=== PATIENT | female | born 1975 | race African-American/Black ===

== ENCOUNTER 2016-12-12 10:23 | Emergency (ER) | payer MEDICARE ==
[2016-12-12 12:29] LABS: BASOPHILS 0.4 % (0.0-2.0); EOSINOPHILS 1.4 % (0-7); HEMATOCRIT 37.2 % (36.0-48.0); HEMOGLOBIN 12.2 g/dL (12-16); IMMATURE GRANULOCYTES 0.2 % (0-5); LYMPHOCYTES 26.6 % (15-50); MCH 29.5 pg (26.0-34.0); MCHC 32.8 g/dL (31.0-37.0); MCV 89.9 fL (80.0-100.0); MEAN PLATELET VOLUME 9.5 fL (7.4-10.4); MONOCYTES 4.9 % (2-11); NEUTROPHILS 66.5 % (40-80); PLATELET COUNT 338 10x3/uL (130-400); RBC 4.14 10x6/uL (4.00-5.40); RDW 12.9 % (11.5-14.5)
[2016-12-12 12:39] LABS: HCG SERUM NEGATIVE (NEGATIVE)
[2016-12-12 12:43] LABS: ALBUMIN 3.7 g/dL (3.4-5.0); ALKALINE PHOSPHATASE 36 U/L (46-116); ALT (SGPT) 16 U/L (10-68); AMYLASE - SERUM 75 U/L (25-115); BILIRUBIN - TOTAL 0.14 mg/dL (0.2-1.3); CALC OSMOLALITY 276 mosm/kg (275-300); CALCIUM 9.3 mg/dL (8.5-10.1); CHLORIDE - SERUM 104 mmol/L (98-107); CREATININE - SERUM 0.8 mg/dL (0.6-1.3); GLUCOSE 79 mg/dL (74-106); LIPASE 161 U/L (73-393); POTASSIUM - SERUM 3.9 mmol/L (3.5-5.1); PROTEIN - SERUM 7.4 g/dL (6.4-8.2); SODIUM 140 mmol/L (136-145); UREA NITROGEN 11 mg/dL (7-18); eGFR NON AFRICAN AMERICAN 85 mL/min (90-120)
[2016-12-12 13:02] LABS: APPEARANCE HAZY (CLEAR); COLOR STRAW (YELLOW)
[2016-12-12 13:03] LABS: BILIRUBIN NEGATIVE (NEGATIVE); GLUCOSE NEGATIVE (NEGATIVE); KETONE NEGATIVE (NEGATIVE); LEUKOCYTE ESTERASE TRACE (NEGATIVE); NITRITE NEGATIVE (NEGATIVE); PROTEIN NEGATIVE (NEGATIVE); UROBILINOGEN NORMAL (NORMAL)
[2016-12-12 13:07] LABS: BACTERIA FEW /hpf (NONE SEEN); EPITHELIAL CELLS 0-5 /hpf (0-5); WHITE CELLS - URINE RARE /hpf (0-5)
== END 2016-12-12 13:45 | disposition home or self-care (01) ==
LOC: D.ER 10:23
PROVIDERS: Physician Assistant
DX: J06.9 Acute upper respiratory infection, unspecified (principal); J20.9 Acute bronchitis, unspecified; K52.9 Noninfective gastroenteritis and colitis, unspecified; F17.200 Nicotine dependence, unspecified, uncomplicated

== ENCOUNTER 2019-02-14 07:49 | Emergency (ER) | payer MEDICARE ==
[~2019-02-14] VITALS: Ht 149.9 cm; Wt 88.6 kg
[2019-02-14 07:57] VITALS: Ht 149.9 cm; Wt 88.6 kg
[2019-02-14] MEDS ORDERED: [UNRECOGNIZED DRUG - OTHER] (08:01)
[2019-02-14 08:33] LABS: BASOPHILS 0.4 % (0-2); EOSINOPHILS 2.1 % (0-7); HEMATOCRIT 38.6 % (36.0-48.0); HEMOGLOBIN 13.2 g/dL (12-16); IMMATURE GRANULOCYTES 0.1 % (0-5); LYMPHOCYTES 27.7 % (15-50); MCH 29.8 pg (26.0-34.0); MCHC 34.2 g/dL (31.0-37.0); MCV 87.1 fL (80.0-100.0); MEAN PLATELET VOLUME 9.8 fL (7.4-10.4); MONOCYTES 11.5 % (2-11); NEUTROPHILS 58.2 % (40-80); PLATELET COUNT 338 10x3/uL (130-400); RBC 4.43 10x6/uL (4.00-5.40); RDW 13.4 % (11.5-14.5); WBC 6.8 10x3/uL (4.8-10.8)
[2019-02-14 08:56] LABS: HCG URINE NEGATIVE (NEGATIVE)
[2019-02-14 09:00] LABS: APPEARANCE HAZY (CLEAR); BILIRUBIN NEGATIVE (NEGATIVE); COLOR YELLOW (YELLOW); GLUCOSE NEGATIVE (NEGATIVE); KETONE NEGATIVE (NEGATIVE); NITRITE NEGATIVE (NEGATIVE); PROTEIN NEGATIVE (NEGATIVE); SPECIFIC GRAVITY 1.025 (1.005-1.020); UROBILINOGEN NORMAL (NORMAL); WHITE CELLS - URINE OCC /hpf (0-5)
[2019-02-14 09:01] LABS: BACTERIA MODERATE /hpf (NONE SEEN); CALCIUM OXALATE CRYSTALS 0-5 /hpf (NONE SEEN); EPITHELIAL CELLS 0-5 /hpf (0-5); MUCUS <1+ /lpf (NONE SEEN); RED CELLS - URINE 0-5 /hpf (0-5)
[2019-02-14] MEDS ORDERED: MACROBID100 MG PO (09:24)
[2019-02-14 09:48] LABS: ALBUMIN 3.2 g/dL (3.4-5.0); ALKALINE PHOSPHATASE 37 U/L (46-116); ALT (SGPT) 18 U/L (10-68); AMYLASE - SERUM 101 U/L (25-115); BILIRUBIN - TOTAL 0.25 mg/dL (0.2-1.3); CALC OSMOLALITY 275 mosm/kg (275-300); CALCIUM 8.5 mg/dL (8.5-10.1); CARBON DIOXIDE 27.1 mmol/L (21.0-32.0); CHLORIDE - SERUM 105 mmol/L (98-107); CREATININE - SERUM 0.8 mg/dL (0.6-1.3); GLUCOSE 87 mg/dL (74-106); LIPASE 468 U/L (73-393); POTASSIUM - SERUM 4.3 mmol/L (3.5-5.1); PROTEIN - SERUM 6.6 g/dL (6.4-8.2); SODIUM 139 mmol/L (136-145); UREA NITROGEN 9 mg/dL (7-18); eGFR NON AFRICAN AMERICAN 84 mL/min (90-120)
[2019-02-14] MEDS ORDERED: HYDROCODON-ACE1 EAC2 PO (10:31)
[2019-02-14 11:30] VITALS: BP 140/86
== END 2019-02-14 12:09 | disposition home or self-care (01) ==
LOC: D.ER 07:49
PROVIDERS: Emergency Medicine
DX: R10.9 Unspecified abdominal pain (principal); R82.71 Bacteriuria; K44.9 Diaphragmatic hernia without obstruction or gangrene

== ENCOUNTER 2019-03-07 07:35 | Outpatient (CLI) | payer MEDICARE ==
[~2019-03-07] VITALS: Ht 149.9 cm; Wt 87.3 kg
[~2019-03-07 07:35] MED LIST: HYDROCODON-ACE1 EAC2 PO; MACROBID100 MG PO; [UNRECOGNIZED DRUG - OTHER] PO
[2019-03-07 08:24] LABS: HEMATOCRIT 38.1 % (36.0-48.0); HEMOGLOBIN 12.7 g/dL (12-16); MCH 29.5 pg (26.0-34.0); MCHC 33.3 g/dL (31.0-37.0); MCV 88.6 fL (80.0-100.0); MEAN PLATELET VOLUME 9.5 fL (7.4-10.4); RBC 4.3 10x6/uL (4.00-5.40); RDW 13.7 % (11.5-14.5); WBC 8.3 10x3/uL (4.8-10.8)
[2019-03-07] MEDS ORDERED: ALBUTEROL SULF8.5 GM INH (08:24)
[2019-03-07 08:43] VITALS: BP 140/94; Ht 149.9 cm; Wt 87.3 kg
--- NOTE | 2019-03-07 10:48 | NUR ---
ESOPHAGEAL MANOMETRY FROM [id number].
--- NOTE | 2019-03-07 11:17 | NUR ---
1114 IV DC'D. CATHETER INTACT. NO BLEEDING AT SITE. BANDAID APPLIED.
--- NOTE | 2019-03-08 09:41 | OP ---
PATIENT NAME: JEANETTE EDWARDS MEDICAL RECORD: [id number] :77 LOCATION:D.OPS ADMISSION DATE: SURGEON: ANTHONY MINOR MD DATE OF OPERATION: 03/07/2019 PREOPERATIVE DIAGNOSES: 1. Paraesophageal hernia. 2. Tobacco dependence syndrome. 3. Asthma. 4. Morbid obesity with a BMI of 40. POSTOPERATIVE DIAGNOSES: 1. Paraesophageal hernia. 2. Tobacco dependence syndrome. 3. Asthma. 4. Morbid obesity with a BMI of 40. PROCEDURE: 1. EGD with biopsy. 2. Endoscopic placement of manometry catheter. SURGEON: Anthony Minor MD REPORT OF PROCEDURE: The Olympus endoscope was advanced through the mouth and esophagus. The patient had a very tortuous course through the stomach. I was eventually able to pass through the GE junction and stomach and get through the antrum until I was in the third portion of the duodenum. The duodenum itself appeared to be normal with no signs of any inflammatory changes. No masses, lesions or ulcerations were noted. As we pulled back a biopsy was taken of the antrum of the stomach. Retroflexed views of the stomach showed no evidence of any masses, lesions or ulcerations, but there was distortion of the tissues consistent with the known large paraesophageal hernia. The GE junction appeared to be normal in size without much dilatation of the tissues around the scope. As we pulled back, we could see that the GE junction was at approximately 28 cm from the teeth. There was some patchy irritation and ulceration to the tissues at the GE junction, so a biopsy was taken at the lower third of the esophagus. As we pulled the scope back, we were able to inspect the esophagus and can see no masses, lesions or ulcerations. We then advanced a manometry tube down the right naris. Endoscopically, we made sure that the catheter was in good position. We could see that the catheter was passing through the GE junction into the fundus of the stomach. At this point, we removed the insufflation and the scope was removed. COMPLICATIONS: None. CONDITION: Stable. ANESTHESIA: TIVA. BLOOD LOSS: Minimal. TRANSINT:[id number] Voice Confirmation ID: [id number] DOCUMENT ID: [id number] OPERATIVE REPORT [id number] JERRYANTHONY MACKENZIE MD at 0941 CC: ROBIN PADGETT [id number] DICTATION DATE: 03/07/19 1011 TANK PUMPER PANELBOARD: 03/07/19 1308 DEP CLI 03/07/19 [facility] [address] [place] [address]
== END 2019-03-07 11:27 | disposition home or self-care (01) ==
LOC: D.OPS 07:35
PROVIDERS: Anesthesiology; ATTEND Surgery
DX: K44.9 Diaphragmatic hernia without obstruction or gangrene (principal)

== ENCOUNTER 2019-03-25 14:30 | Outpatient (CLI) | payer MEDICARE ==
[2019-03-07 08:43] VITALS: BMI 38.8
[~2019-03-25 14:30] MED LIST changes: +ALBUTEROL SULF8.5 GM INH
== END 2019-03-25 15:00 | disposition home or self-care (01) ==
LOC: D.MAMMO 14:30
PROVIDERS: ATTEND Emergency Medicine
DX: Z12.31 Encounter for screening mammogram for malignant neoplasm of breast (principal)

== ENCOUNTER 2019-04-22 08:00 | Outpatient (CLI) | payer MEDICARE ==
[2019-04-23 08:03] VITALS: BMI 39.2
== END 2019-04-22 23:59 | disposition home or self-care (01) ==
LOC: D.MAMMO 08:00
PROVIDERS: ATTEND Emergency Medicine
DX: R92.8 Other abnormal and inconclusive findings on diagnostic imaging of breast (principal)

== ENCOUNTER 2019-04-23 07:15 | Day surgery (SDC) | payer MEDICAID ==
[2019-04-22 12:29] LABS: BASOPHILS 0.2 % (0-2); HEMATOCRIT 36.6 % (36.0-48.0); HEMOGLOBIN 12.1 g/dL (12-16); LYMPHOCYTES 32.7 % (15-50); MCH 29.2 pg (26.0-34.0); MCHC 33.1 g/dL (31.0-37.0); MCV 88.4 fL (80.0-100.0); MEAN PLATELET VOLUME 9.3 fL (7.4-10.4); MONOCYTES 5.3 % (2-11); NEUTROPHILS 58.8 % (40-80); PLATELET COUNT 309 10x3/uL (130-400); RBC 4.14 10x6/uL (4.00-5.40); RDW 13.4 % (11.5-14.5); WBC 6.1 10x3/uL (4.8-10.8)
[2019-04-22 12:38] LABS: ANION GAP 9.8 mmol/L (8-16); CALCIUM 8.8 mg/dL (8.5-10.1); CARBON DIOXIDE 27.1 mmol/L (21.0-32.0); CREATININE - SERUM 0.9 mg/dL (0.6-1.3); POTASSIUM - SERUM 3.9 mmol/L (3.5-5.1)
[~2019-04-23] VITALS: Ht 149.9 cm; Wt 88.2 kg
--- NOTE | ~2019-04-23 | OP ---
PATIENT NAME: JEANETTE EDWARDS MEDICAL RECORD: [id number] :77 LOCATION:D.OPS ADMISSION DATE: SURGEON: ANTHONY MINOR MD DATE OF OPERATION: 04/23/2019 PREOPERATIVE DIAGNOSES: 1. Paraesophageal hernia. 2. Asthma. 3. Tobacco dependence syndrome. POSTOPERATIVE DIAGNOSES: 1. Paraesophageal hernia. 2. Asthma. 3. Tobacco dependence syndrome. PROCEDURE: Laparoscopic paraesophageal hernia repair. SURGEON: Anthony Minor MD REPORT OF PROCEDURE: The patient's abdomen was prepped and draped in sterile fashion. A Veress needle was inserted in the left upper quadrant and the abdomen was insufflated. An 11-mm Visiport trocar was inserted in the midline just above the umbilicus. We could see the Veress needle and there was no sign of any injury to the bowel or surrounding structures. At this point, the 11-mm trocar was placed in the left subcostal region, a 5-mm trocar was placed in the epigastrium, a 5-mm trocar was placed in the left lateral abdomen and a final 5-mm trocar was placed in the right lateral subcostal region. A liver retractor was inserted and the left lobe of the liver was elevated. At this point, we could see a large hiatal hernia present with the mid portion of the transverse colon extending up into the chest along the omentum with gentle traction. I was eventually able to eviscerate the colon and the omentum out and at this point these would lay easily into the abdominal cavity. The stomach was retracted up into the chest and with gentle manipulation we could pull it down partially, but immediately would fall back into the chest when released, probably 3/4 or more of the stomach was resting in the chest cavity. We began our dissection on the lesser omentum and took these down using Harmonic scalpel. The lesser omentum was taken down to the right side of the right kenji and we scored the peritoneum and then began transitioning to taking down the peritoneal attachments of the hernia sac. This was done as deep in the chest and as far anteriorly and posteriorly as possible. Once we had done this, then we came around to the greater curvature of the stomach. We took down the short gastrics from the upper half of the stomach using Harmonic scalpel all the way to the left side of the right kenji. Again, we scored the peritoneum and began taking down the hernia sac as far into the chest as possible. At this point, we had complete release of the hernia sac from its surrounding attachments. The hernia sac was then dissected off of the GE junction and esophagus. At this point, we had a 360-degree inspection of the esophagus. We released some more attachments into the thoracic cavity. At this point, we could pull the stomach down out of the chest easily and in general it rested in the abdominal cavity with the GE junction being right at the diaphragmatic hiatus. We eventually closed up the diaphragmatic hiatus using interrupted 0 Polydeks times 6. We had good approximation of the tissue and it did not appear to be under much tension. We then performed a 270-degree posterior Toupet wrap with interrupted 0 Polydeks times 6. The wrap appeared to be in good position. The tissues did not have any evidence of any bleeding. Everything appeared to rest comfortably in the OPERATIVE REPORT [id number] JEANETTE EDWARDS abdominal cavity and the wrap was noted to be on the distal portion of the patient's esophagus on its most proximal aspect. The wound was then irrigated out thoroughly with normal saline and the liver retractor was removed. At this point, the 11-mm trocar site fascias were closed with 0 Vicryl using a Petr-Ganga suture passer device. The ports and insufflation were then removed. A total of 10 mL of 0.25% Marcaine with epinephrine was infused into the surrounding tissues and the wounds were then closed with subcutaneous 5-0 Monocryl. COMPLICATIONS: None. CONDITION: Stable. ANESTHESIA: General endotracheal and local. BLOOD LOSS: Minimal. TRANSINT:[id number] Voice Confirmation ID: [id number] DOCUMENT ID: [id number] ANTHONY MINOR MD CC: ROBIN PADGETT [id number] DICTATION DATE: 04/23/19 1240 BUILDING MAINTENANCE TECHNICIAN: 04/23/19 1321 [address] [facility] [address] [place] [address]
[2019-04-23 08:03] VITALS: BP 140/89; BMI 39.2
[2019-04-23 14:04] VITALS: BP 142/78
--- NOTE | 2019-04-23 16:00 | NUR ---
PT C/O GAS AND ASKED TO HAVE SOMETHING TO ASSIT WITH GAS PAIN, CALLED DR MINOR AND PER DR MINOR PT CAN NOT HAVE ANYTHING BY MOUTH AT THIS TIME. PT DOES HAVE SCHEDULED REGLAN IV. CONTINUE WITH PLAN OF CARE
--- NOTE | 2019-04-23 16:19 | NUR ---
PT C/O CHEST PAIN THAT SHE STATES SHE'S HAD SINCE SURGERY, ADVISED PT MAY BE RELATED TO GAS, PT V/S/S CONTINUE TO MONITOR
--- NOTE | 2019-04-23 16:36 | NUR ---
PT STATED THAT HER REHABILITATION TEACHER IS NOT HELPING WITH HER PAIN, OFFERED PT A BOLUS AND SHE DECLINED, PT HAS BEEN IN AND OUT OF SLEEP SINCE COMING FROM SURGERY, WILL CONTINUE WITH PLAN OF CARE
--- NOTE | 2019-04-23 18:45 | NUR ---
I have reviewed this patient and I concur with the Shift Assessment completed by the Licensed Practical Nurse today this shift.
--- NOTE | 2019-04-23 19:40 | NUR ---
PT SITTING UP IN BED WITHOUT DISTRESS, ALERT AND ORIENTED. STATES HER PAIN IN CHEST HAS GOTTEN BETTER SINCE WALKING AROUND NURSES STATION. REQUESTS SOMETHING TO DRINK, TOLD PT DR MINOR ORDERED HER TO BE NPO AND WHAT THAT MEANS. PT STATES SHE DOES NOT UNDERSTAND WHY SHE CANNOT HAVE ANYTHING, EDUCATED PT. PT CONTINUES TO BE ARGUMENTATIVE. PROVIDED PT WITH MOUTH SWABS FOR DRY MOUTH AND REINFORCED IMPORTANCE OF STRICT NPO. PT WOULD NOT VERBALIZE UNDERSTANDING, WILL MONITOR
--- NOTE | 2019-04-23 20:20 | NUR ---
PT FAMILY MEMEBER OUT IN HALLWAY UPSET ABOUT PT BEING NPO STATING SHE HAS NO HAD ANYTHING TO EAT SINCE MIDNIGHT. EXLPAINED TO FAMILY AGAIN IMPORTANCE OF NPO AFTER SURGERY. FAMILY MEMBER ASKED THIS NURSE TO CALL DOCTOR. INFORMED FAMILY THAT THE DOCTOR HAS ALREADY BEEN CALLED REGARDING THIS AND HE STATES THE PATIENT TO REMAIN NPO. FAMILY MEMBER WALKED OFF AND BACK INTO ROOM
--- NOTE | 2019-04-23 21:00 | NUR ---
NURSES AID OBSERVED PT HOLDING MOUNTAIN DEW IN HAND UPON ENTERING ROOM. REMINDED PT SHE IS NPO. THIS NURSE WAS INFORMED AND WENT TO PT ROOM, AGAIN REMINDED PT SHE IS NPO AND SHE CAN NOT HAVING ANYTHING TO EAT OR DRINK
[2019-04-23 21:07] VITALS: BP 146/85
--- NOTE | 2019-04-23 22:48 | NUR ---
PT STATES PAIN LEVEL 7/10 IN ABD WHILE USING WAREHOUSE ASSOCIATE DRIVER. SITTING UP IN BED ALERT AND ORIENTED. ENCOURAGED PT TO WALK LAPS AROUND NURSES STATION, PT VERBALIZED UNDERSTANDING, STATES SHE WILL CALL WHEN READY FOR ASSISTANCE
[2019-04-24 00:44] VITALS: BP 149/79
[2019-04-24 02:56] VITALS: Ht 149.9 cm; Wt 88.2 kg
[2019-04-24 05:02] VITALS: BP 137/77
[2019-04-24 06:30] LABS: BASOPHILS 0 % (0-2); EOSINOPHILS 0 % (0-7); HEMATOCRIT 35.2 % (36.0-48.0); HEMOGLOBIN 11.8 g/dL (12-16); IMMATURE GRANULOCYTES 0.2 % (0-5); LYMPHOCYTES 11.5 % (15-50); MCHC 33.5 g/dL (31.0-37.0); MCV 86.5 fL (80.0-100.0); MEAN PLATELET VOLUME 9.9 fL (7.4-10.4); MONOCYTES 7.1 % (2-11); NEUTROPHILS 81.2 % (40-80); PLATELET COUNT 339 10x3/uL (130-400); RBC 4.07 10x6/uL (4.00-5.40); RDW 13.6 % (11.5-14.5)
[2019-04-24 06:53] LABS: CALC OSMOLALITY 271 mosm/kg (275-300); CALCIUM 8.7 mg/dL (8.5-10.1); CARBON DIOXIDE 23.8 mmol/L (21.0-32.0); CHLORIDE - SERUM 105 mmol/L (98-107); CREATININE - SERUM 0.7 mg/dL (0.6-1.3); GLUCOSE 90 mg/dL (74-106); POTASSIUM - SERUM 3.8 mmol/L (3.5-5.1); SODIUM 137 mmol/L (136-145); eGFR NON AFRICAN AMERICAN > 90 mL/min (90-120)
[2019-04-24 06:54] LABS: UREA NITROGEN 7 mg/dL (7-18)
--- NOTE | 2019-04-24 09:05 | NUR ---
WOKE PT UP TO BE TRANSPORTED TO RADIOLOGY FOR IMAGING VIA WHEELCHAIR BY THE [employer] TECH. SALINE LOCK IV FOR TRANSPORTATION. UPON ARRIVAL BACK TO ROOM RE-CONNECTED IV BACK TO FLUIDS WITH PT RESTING RESTING IN BED IN LOWEST POSITION , SIDERAILS UP X2. CONTINUE WITH PLAN OF CARE.
[2019-04-24 09:10] VITALS: BP 123/69
[2019-04-24] MEDS ORDERED: REGLAN10 MG PO (13:16)
[2019-04-24] MEDS ORDERED: NORCO-10 PO (13:16)
[2019-04-24 13:24] VITALS: BP 129/66
--- NOTE | 2019-04-24 14:00 | NUR ---
ADMINISTERED PT PAIN MEDICATION AT 1330, WENT OVER PT DC PAPERWORK AND ALL QUESTIONS ANSWRED. NO OTHR NEEDS VOICED. PT TAKEN DOWN VIA WC
== END 2019-04-24 14:00 | disposition home or self-care (01) ==
LOC: D.MS 07:15 → D.OPS 07:15 → D.PAN 08:00 → D.OPS 08:00 → D.MS 14:02 → D.OPS 04-24 14:00
PROVIDERS: Anesthesiology; ATTEND Surgery
DX: K44.9 Diaphragmatic hernia without obstruction or gangrene (principal); J45.909 Unspecified asthma, uncomplicated; F17.200 Nicotine dependence, unspecified, uncomplicated

== ENCOUNTER 2019-04-26 22:49 | Inpatient (IN) | payer MEDICAID ==
[~2019-04-26] VITALS: Ht 149.9 cm; Wt 88.6 kg
[~2019-04-26 22:49] MED LIST changes: +NORCO-10 PO; +REGLAN10 MG PO
[2019-04-26 23:54] VITALS: BP 131/89
[2019-04-27] VITALS (8 sets, daily range): BP systolic 122–165; BP diastolic 80–96; Ht 149.9 cm; Wt 88.6 kg
[2019-04-27] LABS: BASOPHILS 0.4 % (0-2); EOSINOPHILS 3.7 % (0-7); HEMATOCRIT 37.5 % (36.0-48.0); IMMATURE GRANULOCYTES 0.3 % (0-5); LYMPHOCYTES 32.1 % (15-50); MCHC 34.7 g/dL (31.0-37.0); MCV 86.4 fL (80.0-100.0); MEAN PLATELET VOLUME 9.6 fL (7.4-10.4); MONOCYTES 8.4 % (2-11); NEUTROPHILS 55.1 % (40-80); PLATELET COUNT 321 10x3/uL (130-400); RBC 4.34 10x6/uL (4.00-5.40); WBC 7.9 10x3/uL (4.8-10.8)
[2019-04-27 00:17] LABS: ALBUMIN 3.3 g/dL (3.4-5.0); ANION GAP 8.9 mmol/L (8-16); BILIRUBIN - TOTAL 0.24 mg/dL (0.2-1.3); CALCIUM 9.3 mg/dL (8.5-10.1); POTASSIUM - SERUM 3.9 mmol/L (3.5-5.1); PROTEIN - SERUM 7.3 g/dL (6.4-8.2)
--- NOTE | 2019-04-27 01:55 | NUR ---
PT OUT TO CT.
--- NOTE | 2019-04-27 02:02 | NUR ---
PT RETURNED FROM CT
--- NOTE | 2019-04-27 04:00 | NUR ---
RECEIVED PT TO FLOOR FROM ER VIA WHEELCHAIR. REVIEWED HOME MED AND HISTORY. RATES PAIN 6/10 NOW. ASSESSMENT COMPLETE PER FLOW-SHEET. NPO FOR SURGERY CONSULT. NO OTHER NEEDS. WILL CONTINUE TO MONITOR.
[2019-04-27] MEDS ORDERED: IBUPROFEN600 MG PO (04:13)
--- NOTE | 2019-04-27 11:53 | NUR ---
PT RESTING IN BED WITH FAMILY BY HER SIDE. REPORTS PAIN DOWN TO 5/10. WILL CONTINUE TO MONITOR. BED LOW, CALL LIGHT IN REACH, RAILS UP X 2.
--- NOTE | 2019-04-27 15:32 | NUR ---
REQUESTED PRN PAIN MEDICATION, ADMINISTERED IV MORPHINE PER ORDER, C/O GAS PAIN IN BETWEEN SHOULDER BLADES AND SHOULDERS. EXPLAINED TO PT THAT MOVING AND AMBULATION IS THE BEST OPTION FOR GAS PAIN POST SURGERY. STATED "I HAVE TRIED MOVING, I HAVE GONE TO THE BATHROOM, FIXED UP THE ROOM, MADE MY BED AND STILL NO RELIEF SINCE SURGERY." JOANA HSU HAS ALREADY SPOKEN WITH DARRIAN AND HE WILL EVALUATE AND TREAT WHEN HE ARRIVES.
--- NOTE | 2019-04-27 19:45 | NUR ---
PATIENT UP AMBULATING AROUND ROOM. PATIENT DENIES NEEDS AT THIS TIME. NO S/S OF DISTRESS. BED IN LOWEST POSITION AND CALL LIGHT WITHIN REACH. ENCOURAGED THE PATIENT TO CALL IF SHE HAS NEEDS. WILL CONTINUE TO MONITOR.
[2019-04-28] VITALS: BP 147/95
[2019-04-28 04:00] VITALS: BP 140/90
[2019-04-28 06:12] LABS: BASOPHILS 0.4 % (0-2); EOSINOPHILS 4.7 % (0-7); HEMATOCRIT 34.2 % (36.0-48.0); HEMOGLOBIN 11.4 g/dL (12-16); IMMATURE GRANULOCYTES 0.3 % (0-5); LYMPHOCYTES 31.8 % (15-50); MCH 29.1 pg (26.0-34.0); MCHC 33.3 g/dL (31.0-37.0); MCV 87.2 fL (80.0-100.0); NEUTROPHILS 51.8 % (40-80); PLATELET COUNT 337 10x3/uL (130-400); RBC 3.92 10x6/uL (4.00-5.40); RDW 13.3 % (11.5-14.5); WBC 7.2 10x3/uL (4.8-10.8)
[2019-04-28 06:39] LABS: ALBUMIN 2.8 g/dL (3.4-5.0); ALKALINE PHOSPHATASE 39 U/L (46-116); ALT (SGPT) 31 U/L (10-68); CALCIUM 8.2 mg/dL (8.5-10.1); CARBON DIOXIDE 27.5 mmol/L (21.0-32.0); CHLORIDE - SERUM 105 mmol/L (98-107); CREATININE - SERUM 0.8 mg/dL (0.6-1.3); GLUCOSE 96 mg/dL (74-106); PHOSPHOROUS 2.8 mg/dL (2.5-4.9); PROTEIN - SERUM 6.3 g/dL (6.4-8.2); SODIUM 138 mmol/L (136-145); TROPONIN-I < 0.017 ng/mL (0.000-0.060); eGFR NON AFRICAN AMERICAN 84 mL/min (90-120)
[2019-04-28 06:41] LABS: CALC OSMOLALITY 272 mosm/kg (275-300); UREA NITROGEN 5 mg/dL (7-18)
--- NOTE | 2019-04-28 07:56 | NUR ---
PATIENT REQUESTED TO BE DISCHARGED. [facility] CALLED. STATED OK TO DISCHARGE. DISCHARGE EDUCATION PROVIDED BOTH WRITTEN AND VERBAL. VERBALIZED UNDERSTANDING. DENIES FURTHER QUESTIONS. IV REMOVED FROM RIGHT AC WITH TIP INTACT. DISCHARGED HOME WITH ALL BELONGINGS.
== END 2019-04-28 09:10 | disposition home or self-care (01) | DRG 200 ==
LOC: D.ER 22:49 → D.MS 04-27 03:04
PROVIDERS: Emergency Medicine; ADMIT Surgery; ATTEND Surgery
DX: J95.811 Postprocedural pneumothorax (principal); J94.2 Hemothorax; T81.82XA Emphysema (subcutaneous) resulting from a procedure, initial encounter; Y83.8 Other surgical procedures as the cause of abnormal reaction of the patient, or of later complication, without mention of misadventure at the time of the procedure; R07.89 Other chest pain; K59.00 Constipation, unspecified; Z72.0 Tobacco use; K21.9 Gastro-esophageal reflux disease without esophagitis; R82.71 Bacteriuria

== ENCOUNTER 2019-08-12 13:26 | Emergency (ER) | payer OTHER ==
[~2019-08-12] VITALS: Ht 149.9 cm; Wt 89.5 kg
[~2019-08-12 13:26] MED LIST changes: +IBUPROFEN600 MG PO
[2019-08-12 13:36] VITALS: Ht 149.9 cm; Wt 89.5 kg
[2019-08-12 14:32] LABS: BASOPHILS 0.4 % (0-2); EOSINOPHILS 2.6 % (0-7); HEMATOCRIT 37.6 % (36.0-48.0); HEMOGLOBIN 12.3 g/dL (12-16); IMMATURE GRANULOCYTES 0.3 % (0-5); LYMPHOCYTES 29.2 % (15-50); MCH 28.9 pg (26.0-34.0); MCHC 32.7 g/dL (31.0-37.0); MCV 88.3 fL (80.0-100.0); MEAN PLATELET VOLUME 9.5 fL (7.4-10.4); MONOCYTES 8.4 % (2-11); NEUTROPHILS 59.1 % (40-80); PLATELET COUNT 327 10x3/uL (130-400); RBC 4.26 10x6/uL (4.00-5.40); RDW 14.4 % (11.5-14.5); WBC 7.4 10x3/uL (4.8-10.8)
[2019-08-12 14:38] LABS: APPEARANCE HAZY (CLEAR); BACTERIA NONE SEEN /hpf (NEGATIVE); BILIRUBIN NEGATIVE (NEGATIVE); COLOR YELLOW (YELLOW); EPITHELIAL CELLS NSEEN /hpf (0-5); GLUCOSE NEGATIVE (NEGATIVE); KETONE MODERATE mg/dL (NEGATIVE); NITRITE NEGATIVE (NEGATIVE); PROTEIN NEGATIVE (NEGATIVE); UROBILINOGEN NORMAL (NORMAL); WHITE CELLS - URINE RARE /hpf (NEGATIVE)
[2019-08-12 14:52] LABS: CALC OSMOLALITY 272 mosm/kg (275-300); CALCIUM 8.5 mg/dL (8.5-10.1); CHLORIDE - SERUM 105 mmol/L (98-107); CREATININE - SERUM 0.9 mg/dL (0.6-1.3); GLUCOSE 84 mg/dL (74-106); SODIUM 138 mmol/L (136-145); UREA NITROGEN 8 mg/dL (7-18); eGFR NON AFRICAN AMERICAN 73 mL/min (90-120)
[2019-08-12 15:01] LABS: ALBUMIN 3.4 g/dL (3.4-5.0); ALKALINE PHOSPHATASE 44 U/L (46-116); ALT (SGPT) 15 U/L (10-68); AMYLASE - SERUM 48 U/L (25-115); BILIRUBIN - TOTAL 0.26 mg/dL (0.2-1.3); LIPASE 96 U/L (73-393); PROTEIN - SERUM 7.3 g/dL (6.4-8.2)
[2019-08-12 15:03] LABS: TROPONIN-I < 0.017 ng/mL (0.000-0.060)
[2019-08-12] MEDS ORDERED: EC-NAPROSYN500 MG PO (17:43)
[2019-08-12] MEDS ORDERED: LEVAQUIN750 MG PO (17:43)
[2019-08-12 19:37] VITALS: BP 142/87
== END 2019-08-12 19:37 | disposition home or self-care (01) ==
LOC: D.ER 13:26
PROVIDERS: Family Medicine
DX: J18.9 Pneumonia, unspecified organism (principal); N83.201 Unspecified ovarian cyst, right side; S39.011A Strain of muscle, fascia and tendon of abdomen, initial encounter; X58.XXXA Exposure to other specified factors, initial encounter; Y93.29 Activity, other involving ice and snow; J90 Pleural effusion, not elsewhere classified

== ENCOUNTER 2020-03-20 08:58 | Emergency (ER) | payer OTHER ==
[~2020-03-20] VITALS: Ht 149.9 cm; Wt 90.0 kg
[~2020-03-20 08:58] MED LIST changes: +EC-NAPROSYN500 MG PO; +LEVAQUIN750 MG PO
[2020-03-20 09:07] VITALS: Ht 149.9 cm; Wt 90.0 kg
[2020-03-20] MEDS ORDERED: CELEXA20 MG PO (09:09)
[2020-03-20] MEDS ORDERED: [UNRECOGNIZED DRUG - REMARK] (09:10)
[2020-03-20 09:49] LABS: BASOPHILS 0.9 % (0-2); EOSINOPHILS 4.7 % (0-7); HEMATOCRIT 37.9 % (36.0-48.0); HEMOGLOBIN 12.2 g/dL (12-16); IMMATURE GRANULOCYTES 0.3 % (0-5); LYMPHOCYTES 30.6 % (15-50); MCHC 32.2 g/dL (31.0-37.0); MEAN PLATELET VOLUME 9.3 fL (7.4-10.4); MONOCYTES 8.2 % (2-11); NEUTROPHILS 55.3 % (40-80); PLATELET COUNT 345 10x3/uL (130-400); RBC 4.21 10x6/uL (4.00-5.40); RDW 14.5 % (11.5-14.5); WBC 6.8 10x3/uL (4.8-10.8)
[2020-03-20 09:58] LABS: APTT 29.1 SECONDS (22.8-39.4); CALC OSMOLALITY 269 mosm/kg (275-300); CALCIUM 8.7 mg/dL (8.5-10.1); CARBON DIOXIDE 28.1 mmol/L (21.0-32.0); CHLORIDE - SERUM 102 mmol/L (98-107); GLUCOSE 85 mg/dL (74-106); INR 0.94 (0.85-1.17); POTASSIUM - SERUM 4.3 mmol/L (3.5-5.1); PROTIME 12.6 SECONDS (11.6-15.0); SODIUM 136 mmol/L (136-145); UREA NITROGEN 10 mg/dL (7-18); eGFR NON AFRICAN AMERICAN 64 mL/min (90-120)
[2020-03-20 10:15] LABS: ALBUMIN 3.5 g/dL (3.4-5.0); ALKALINE PHOSPHATASE 39 U/L (30-120); ALT (SGPT) 27 U/L (10-68); BILIRUBIN - TOTAL 0.27 mg/dL (0.2-1.3); CKMB 0.7 U/L (0.0-3.6); CREATINE KINASE 140 UL (21-215); PRO BNP 19 pg/mL (0-125); PROTEIN - SERUM 7.5 g/dL (6.4-8.2); TROPONIN-I < 0.017 ng/mL (0.000-0.060)
[2020-03-20 10:19] LABS: HCG SERUM NEGATIVE (NEGATIVE)
[2020-03-20] MEDS ORDERED: FLUTICASONE PRO16 GM NASAL (11:08)
[2020-03-20] MEDS ORDERED: AUGMENTIN 875-11 TAB PO (11:08)
[2020-03-20 11:20] VITALS: BP 123/81
== END 2020-03-20 11:20 | disposition home or self-care (01) ==
LOC: D.ER 08:58
PROVIDERS: Family Medicine
DX: J01.90 Acute sinusitis, unspecified (principal); J45.909 Unspecified asthma, uncomplicated; K21.9 Gastro-esophageal reflux disease without esophagitis; Z72.0 Tobacco use; R51 Headache; R06.02 Shortness of breath

== ENCOUNTER 2020-06-25 13:45 | Emergency (ER) | payer OTHER ==
[~2020-06-25] VITALS: Ht 149.9 cm; Wt 97.7 kg
[~2020-06-25 13:45] MED LIST changes: +AUGMENTIN 875-11 TAB PO; +CELEXA20 MG PO; +FLUTICASONE PRO16 GM NASAL; +[UNRECOGNIZED DRUG - REMARK]
[2020-06-25 13:52] VITALS: Ht 149.9 cm; Wt 97.7 kg
[2020-06-25] MEDS ORDERED: TESSALON PERLE100 MG PO (14:36)
[2020-06-25] MEDS ORDERED: FLUTICASONE PRO16 GM NASAL (14:36)
[2020-06-25] MEDS ORDERED: AUGMENTIN 875-11 TAB PO (14:36)
[2020-06-25] MEDS ORDERED: DIFLUCAN100 MG PO (14:56)
[2020-06-25 15:03] VITALS: BP 135/85
== END 2020-06-25 15:04 | disposition home or self-care (01) ==
LOC: D.ER 13:45
DX: R51 Headache (principal); J32.9 Chronic sinusitis, unspecified; J45.909 Unspecified asthma, uncomplicated; K21.9 Gastro-esophageal reflux disease without esophagitis; Z72.0 Tobacco use